=== PATIENT | male | born 1940 | race Caucasian/White ===

== ENCOUNTER 2021-12-28 08:34 | Inpatient (IN) | payer MEDICARE, OTHER ==
[2021-12-28] VITALS (10 sets, daily range): BP systolic 120–154; BP diastolic 50–105
[~2021-12-28] VITALS: Ht 162.6 cm; Wt 64.4 kg
[2021-12-28 09:51] LABS: COVID AG,FIA SOURCE NASAL SWAB
[2021-12-28 09:53] LABS: BASOPHILS % (AUTO) 0.9 % (0.0-2.0); EOSINOPHILS % (AUTO) 1.3 % (1.0-6.0); HEMATOCRIT 37.4 % (41-53); HEMOGLOBIN 11.5 g/dL (13.5-17.5); LYMPHOCYTES # (AUTO) 2.6 K/uL (1.0-4.8); LYMPHOCYTES % (AUTO) 27.6 % (22.0-44.0); MEAN CORPUSCULAR HEMOGLOBIN 22.5 pg (26.0-34.0); MEAN CORPUSCULAR HGB CONC 30.6 G/dL (31.0-37.0); MEAN CORPUSCULAR VOLUME 73 fL (80-100); MONOCYTES # (AUTO) 0.7 K/uL (0.1-1.0); MONOCYTES % (AUTO) 7.8 % (2.0-9.0); NEUTROPHILS # (AUTO) 5.8 K/uL (1.8-7.7); NEUTROPHILS % (AUTO) 62.4 % (40.0-70.0); PLATELET COUNT (AUTO) 240 K/uL (150-450); RED BLOOD CELL COUNT(AUTO) 5.09 MIL/uL (4.50-5.90); RED CELL DISTRIBUTION WIDTH 17.8 % (11.5-14.5)
[2021-12-28 09:59] LABS: CALCIUM, TOTAL 9.1 mg/dL (8.8-10.5); CREATININE 1.49 mg/dL (0.60-1.30); POTASSIUM 5.1 mmol/L (3.5-5.1)
[2021-12-28 10:04] LABS: PROTHROMBIN TIME 10.7 SEC (9.4-11.6)
[2021-12-28 10:24] LABS: ALBUMIN 3.4 g/dL (3.4-5.0); BILIRUBIN,TOTAL 0.4 mg/dL (0.1-1.0); TOTAL PROTEIN, SERUM 7.5 g/dL (6.4-8.2)
[2021-12-28] MEDS ORDERED: LINA5TAB PO (11:21)
[2021-12-28] MEDS ORDERED: CILO100T PO (11:21)
[2021-12-28] MEDS ORDERED: ASPI-1444 PO (11:21)
[2021-12-28] MEDS ORDERED: ESOM40SU2 PO (11:21)
[2021-12-28] MEDS ORDERED: CLOP75TA60 PO (11:21)
[2021-12-28] MEDS ORDERED: METF-1185 PO (11:21)
[2021-12-28] MEDS ORDERED: FURO20 PO (11:21)
[2021-12-28] MEDS ORDERED: ATOR40TA28 PO (11:21)
[2021-12-28] MEDS ORDERED: LOSA-382 PO (11:21)
[2021-12-28] MEDS ORDERED: INSU100I24 SQ. (11:21)
[2021-12-28] MEDS ORDERED: GLIP10 PO (11:21)
[2021-12-28] MEDS ORDERED: DONE5TAB5 PO (11:21)
[2021-12-28] MEDS ORDERED: CARV3 PO (11:21)
[2021-12-28] MEDS ORDERED: SODIUM BICARBONATE 50 MEQ/50 ML VIAL ONE (15:23)
[2021-12-28] MEDS ORDERED: LIDOCAINE/PF 1% 30 ML VIAL ONE (15:23)
[2021-12-28] MEDS ORDERED: IOHEXOL 300 MG/ML 50 ML VIAL ONE (15:23)
[2021-12-28] MEDS ORDERED: IOHEXOL 300 MG/ML 100 ML VIAL ONE (15:24)
[2021-12-28] MEDS ORDERED: HEPARIN SODIUM 1000 UNITS/NS 1,000 ML ONE (15:24)
[2021-12-28] MEDS ORDERED: FentaNYL CITRATE PF 100 MCG/2 ML VIAL ONE (16:04)
[2021-12-28] MEDS ORDERED: MIDAZOLAM HCL 2 MG/2 ML VIAL ONE (16:04)
[2021-12-28] MEDS ORDERED: HEPARIN SODIUM 1000 UNITS/NS 1,000 ML IARTER ONE (16:30)
[2021-12-28] MEDS ORDERED: MIDAZOLAM HCL 2 MG/2 ML VIAL IVP ONE (16:30)
[2021-12-28] MEDS ORDERED: LIDOCAINE 1% 30 ML/SOD BICARB 8.4% 4 ML SQ ONE (16:30)
[2021-12-28] MEDS ORDERED: FentaNYL CITRATE PF 100 MCG/2 ML VIAL IVP ONE (16:30)
[2021-12-28] MEDS ORDERED: IOHEXOL 300 MG/ML 150 ML VIAL IARTER ONE (16:30)
[2021-12-28] MEDS ORDERED: MORPHINE SULFATE 2 MG/ML SYRINGE IVP PRN (17:00)
[2021-12-28] MEDS ORDERED: NITROGLYCERIN 0.4 MG SUBLINGUAL TABLET #25 SL PRN (17:00)
[2021-12-28] MEDS ORDERED: ACETAMINOPHEN 325 MG TABLET PO PRN ×2 (17:00→17:45)
[2021-12-28] MEDS ORDERED: INSULIN LISPRO 100 UNITS/ML SQ PRN (17:30)
[2021-12-28] MEDS ORDERED: DEXTROSE 50%-WATER 25 GM/50 ML SYRINGE IVP PRN (17:30)
[2021-12-28] MEDS ORDERED: MAGNESIUM HYDROXIDE SUSPENSION 30 ML UDCUP PO PRN (17:45)
[2021-12-28 19:51] LABS: GLUCOMETER DEV NAME(LOC) 5N.3; GLUCOSE,POINT OF CARE 129 MG/DL (70-110)
[2021-12-28] MEDS: CARVEDILOL 6.25 MG TABLET PO SCH (20:09)
[2021-12-28] MEDS: SACUBITRIL/VALSARTAN 24-26 MG TABLET PO SCH (20:09)
[2021-12-28] MEDS: HEPARIN SODIUM,PORCINE 5,000 UNITS/ML VIAL SQ SCH (20:09)
[2021-12-28] MEDS ORDERED: ATORVASTATIN CALCIUM 40 MG TABLET PO SCH (21:00)
[2021-12-28 22:51] LABS: GLUCOMETER DEV NAME(LOC) 5N.1C; GLUCOSE,POINT OF CARE 59 MG/DL (70-110)
[2021-12-28 22:51] LABS: GLUCOMETER DEV NAME(LOC) 5N.1C; GLUCOSE,POINT OF CARE 50 MG/DL (70-110)
[2021-12-28 22:51] LABS: GLUCOMETER DEV NAME(LOC) 5N.1C; GLUCOSE,POINT OF CARE 108 MG/DL (70-110)
[2021-12-29] MEDS ORDERED: HEPARIN SODIUM,PORCINE 5,000 UNITS/ML VIAL SQ SCH
[2021-12-29 03:35] VITALS: BP 113/56
[2021-12-29 06:22] LABS: GLUCOMETER DEV NAME(LOC) 5N.3; GLUCOSE,POINT OF CARE 74 MG/DL (70-110)
[2021-12-29 07:56] VITALS: BP 100/58
[2021-12-29] MEDS: SACUBITRIL/VALSARTAN 24-26 MG TABLET PO SCH (08:21)
[2021-12-29] MEDS: HEPARIN SODIUM,PORCINE 5,000 UNITS/ML VIAL SQ SCH (08:22)
[2021-12-29] MEDS: CARVEDILOL 6.25 MG TABLET PO SCH (08:22)
[2021-12-29] MEDS ORDERED: FUROSEMIDE 20 MG TABLET PO SCH (09:00)
[2021-12-29] MEDS ORDERED: ASPIRIN 81 MG CHEWABLE TABLET PO SCH (09:00)
[2021-12-29] MEDS ORDERED: FAMOTIDINE 20 MG TABLET PO SCH (09:00)
[2021-12-29 10:44] LABS: CALCIUM, TOTAL 8.5 mg/dL (8.8-10.5); CREATININE 1.55 mg/dL (0.60-1.30); POTASSIUM 5.4 mmol/L (3.5-5.1)
[2021-12-29] MEDS ORDERED: SACU1TAB PO (10:47)
[2021-12-29 11:29] VITALS: BP 116/63
[2021-12-29 12:52] LABS: GLUCOMETER DEV NAME(LOC) 5N.1C; GLUCOSE,POINT OF CARE 149 MG/DL (70-110)
[2021-12-29 15:33] VITALS: BP 103/61
== END 2021-12-29 16:35 | disposition home or self-care (01) | DRG 280 ==
LOC: EMS 08:43 → 5S 08:44
PROVIDERS: ADMIT Hospitalist; ATTEND Hospitalist
PROC: 4A023N7 Measurement of Cardiac Sampling and Pressure, Left Heart, Percutaneous Approach (ICD-10-PCS; principal; 2021-12-28)
PROC: B2111ZZ Fluoroscopy of Multiple Coronary Arteries using Low Osmolar Contrast (ICD-10-PCS; 2021-12-28)
PROC: B2121ZZ Fluoroscopy of Single Coronary Artery Bypass Graft using Low Osmolar Contrast (ICD-10-PCS; 2021-12-28)
PROC: B2181ZZ Fluoroscopy of Left Internal Mammary Bypass Graft using Low Osmolar Contrast (ICD-10-PCS; 2021-12-28)
PROC: B2151ZZ Fluoroscopy of Left Heart using Low Osmolar Contrast (ICD-10-PCS; 2021-12-28)
PROC: B3101ZZ Fluoroscopy of Thoracic Aorta using Low Osmolar Contrast (ICD-10-PCS; 2021-12-28)
PROC: B2171ZZ Fluoroscopy of Right Internal Mammary Bypass Graft using Low Osmolar Contrast (ICD-10-PCS; 2021-12-28)
PROC: B41F1ZZ Fluoroscopy of Right Lower Extremity Arteries using Low Osmolar Contrast (ICD-10-PCS; 2021-12-28)
DX: I21.4 Non-ST elevation (NSTEMI) myocardial infarction (principal); I50.23 Acute on chronic systolic (congestive) heart failure; I25.10 Atherosclerotic heart disease of native coronary artery without angina pectoris; E11.9 Type 2 diabetes mellitus without complications; F03.90 Unspecified dementia, unspecified severity, without behavioral disturbance, psychotic disturbance, mood disturbance, and anxiety; I10 Essential (primary) hypertension; N28.9 Disorder of kidney and ureter, unspecified; F41.9 Anxiety disorder, unspecified; E78.00 Pure hypercholesterolemia, unspecified; Z20.822 Contact with and (suspected) exposure to COVID-19; I25.2 Old myocardial infarction; Z95.0 Presence of cardiac pacemaker; Z83.3 Family history of diabetes mellitus
CPT/HCPCS: 71045; 80048; 80053; 82550; 82962; 83880; 84484; 85025; 85610; 85730; 87081; 93005; 93459; 93567; 99285; J1644; J2250; J3010; J3490; Q9967; 36415-L1; 36415-TC